=== PATIENT | male | born 1970 | race Caucasian/White ===

== ENCOUNTER 2020-05-21 16:32 | Emergency (ER) | payer OTHER, SELFPAY ==
[2020-05-21 16:40] VITALS: BP 130/83; PULSE 69; RESP 18; TEMP 37.1; O2SAT 98; BMI 25.7
--- NOTE | 2020-05-21 16:59 | [facility].EDGENADL ---
ED Disposition Clinical Impression: Epistaxis Disposition: Home, Self-Care Condition on Discharge: Good Instructions: DI for Nosebleed Referrals: PCP,No [Primary Care Provider] - Time of Disposition: 17:06 - Critical Care Critical Care Time: No Attestation: On , the high probability of a clinically significant, sudden or life threatening deterioration of the following system(s) required my full and direct attention, intervention and personal management. The time I documented below is in addition to time spent performing reported procedures but includes the following listed in this critical care notation. Medical Decision Making - Medical Records Medical records reviewed: Yes: I reviewed the patient's medical records. - Magdiel Inquiry Pt receiving controlled substance: No Vital Signs: 05/21/20 16:40 05/21/20 17:59 Temperature 98.8 F 98.8 F Temperature Source Oral Pulse Rate 67 Pulse Rate [Right Radial] 69 Respiratory Rate 18 18 Blood Pressure 120/75 Blood Pressure [Right Arm] 130/83 Blood Pressure Mean [Right Arm] 98 Blood Pressure Source Automatic Cuff Blood Pressure Source [Right Arm] Automatic Cuff Blood Pressure Position Sitting Blood Pressure Position [Right Arm] Sitting 02 Sat by Pulse Oximetry 98 Oxygen Delivery Method Room Air Room Air Medical Decision Narrative: 49-year-old male presenting to the emergency department with left-sided epistaxis. Bleeding controlled on arrival. Patient is clinically stable. The bleeding seems to be from the anterior portion of the nose near the nasal septum. Patient observed in the emergency department for a short period of time. He does not take blood thinners. Is not hypertensive. Counseled him to avoid nasal sprays. Avoid nose picking or objects in the nose. Use Vaseline or other lubricating gel. Gave him a referral to primary care physician. Stable for discharge. General Adult HPI - General Chief complaint: Epistaxis Stated complaint: nose bleed Time Seen by Provider: 05/21/20 16:49 Mode of Arrival: Ambulatory Limitations: Language Barrier Description of Symptoms (Recalled from ER Triage Doc. by RN): Pt reports nose bleed earlier today. Pt reports a few weeks ago he had a nose bleed was seen at [facility] and had a tube placed in his nose. States had the tube removed 2days later. Pt states also has a headache. - History of Present Illness HPI narrative: 49-year-old male presenting to the emergency department with epistaxis. Symptoms started this morning. Bleeding lasted for 30 minutes to 1 hour. Was out of his left nare. He does not remember any falls, trauma. Does not use nasal sprays like Flonase or Afrin. He had one bloody nose a week ago that was treated at [facility]. He was not told of any abnormal findings. Does not pick his nose. Had a nasal bone fracture from an accident many years ago. No frequent sinusitis. No current headache, vision changes, sore throat. No history of hypertension. Does not take any blood thinning medicines. History obtained with mother's helper. - Related Data Allergies Allergy/AdvReac Type Severity Reaction Status Date / Time No Known Allergies Allergy Unverified 09/11/17 14:21 [facility] History - Hepatitis A Screen Drug use history?: No High risk sexual behaviors?: No History of sexually transmitted infection?: No Currently employed?: No Childcare worker?: No Do you have indoor plumbing?: Yes Do you have electricity?: Yes Attestation statement:: This patient has been screened for Hepatitis A risk factors. ROS Obtained: Yes All systems reviewed & no additional complaints - Constitutional Constitutional: Denies chills, Denies fever(s) - Eyes Eyes: Denies blurry vision, Denies change in vision - ENT Ears, Nose, Mouth, and Throat: Denies dizziness, Reports epistaxis, Denies facial pain, Denies sinus pressure, Denies sore throat -
[2020-05-21 17:59] VITALS: BP 120/75; PULSE 67; RESP 18; TEMP 37.1; O2SAT 97
== END 2020-05-21 18:00 | disposition home or self-care (01) ==
PROVIDERS: Emergency Provider Emergency Medicine
DX: R04.0 Epistaxis (principal)
CPT/HCPCS: 99281